=== PATIENT | male | born 1950 | race Caucasian/White ===

== ENCOUNTER 2018-08-07 00:10 | Emergency (ER) | payer MEDICARE, OTHER, SELFPAY ==
[2018-08-07 00:12] VITALS: BP 185/90; PULSE 94; RESP 16; TEMP 36.8; O2SAT 97; BMI 35.4
[2018-08-07 00:15] VITALS: O2SAT 97
--- NOTE | 2018-08-07 00:45 | RAD_ITS ---
STUDY: X-RAY CHEST REASON FOR EXAM: Male, 68 years old. Head cold, cough, congestion. TECHNIQUE: PA and lateral chest. COMPARISON: March 02, 2016. FINDINGS: The lungs are clear and expanded. There is no demonstrated pleural abnormality. Normal size heart. Normal mediastinum and jatin. Normal visualized pulmonary arteries. Normal visualized aortic arch and descending thoracic aorta. Degenerative changes of the thoracic spine. Normal visualized ribs, clavicles, and shoulders. There is no demonstrated abnormality of the visualized soft tissue structures of the upper abdomen. RAD/Chest PA and Lateral IMPRESSION: No acute cardiopulmonary disease. Electronically Signed: Joey aFtima MD at 1:34 EST , Service support ,
[2018-08-07 00:53] VITALS: PULSE 90; RESP 16
[2018-08-07] MEDS: Albuterol 2.5 MG/3 ML VIAL.NEB. INHALATION (00:53)
--- NOTE | 2018-08-07 02:13 | ED.VIS.GEN ---
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 congestion. sore throat. no earaches or fevers. occ sob. Narrative: No history of lung or heart disease. He is a diabetic. - Past Medical History (1) Bipolar disorder Status: Chronic (2) GERD (gastroesophageal reflux disease) Status: Chronic (3) History of prostate cancer Status: Chronic Comment: Status post surgery and artificial bladder sphincter (4) Hyperlipidemia Status: Chronic (5) Hypertension Status: Chronic (6) Type II diabetes mellitus Status: Chronic Past Medical History - Allergies and Home Meds Allergies/Adverse Reactions: Allergies ciprofloxacin [From Cipro] Allergy (Verified 07/18/14 22:51) Swelling ciprofloxacin HCl [From Cipro] Allergy (Verified 07/18/14 22:51) Swelling tramadol Allergy (Verified 07/18/14 22:51) Unknown lactose Adverse Reaction (Verified 08/23/14 11:34) Other DIARRHEA peanut Adverse Reaction (Verified 03/13/15 10:56) Nausea terbinafine HCl [From Lamisil] Adverse Reaction (Verified 08/23/14 11:34) Other ABNORMAL LIVER ENZYMES Primary Care Physician: Shane Schneider III, MD [Primary Care Provider] - Surgical History: herniorrhaphy, - - L foot surgery, prostate surgery for cancer. Smoking Status: Never smoker - Family History Maternal Family History: Reports: No pertinent history Paternal Family History: Reports: No pertinent history Review of Systems General: Denies: Chills, Fever Eyes: Denies: Visual changes - bilaterally, Diplopia ENT: Reports: Sore throat. Denies: Bilateral ear pain, Rhinorrhea Cardiovascular: Reports: Chest pain - when coughs only, diffuse Respiratory: Reports: Dyspnea - occasionally, mild, Cough. Denies: Sputum Gastrointestinal: Denies: Abdominal pain, Nausea, Vomiting Skin: Denies: Rash, Wounds Neurological: Denies: Headache, Weakness, Parasthesia Physical Exam Vital Signs/Narrative: Vital Signs Temp Pulse Resp BP Pulse Ox 08/07/18 00:53 90 16 08/07/18 00:12 98.2 F 94 16 185/90 H 97 Inital Vital Signs reviewed: Yes General: Well nourished, Well developed Head: Normocephalic, Atraumatic Eyes: Perrl, EOMI ENT: Moist mucous membranes, No rhinorrhea, TM's clear, - - POP erythemetous, no tonsillar edema/asymmetry or exudates.. Negative for: Sinus tenderness Neck: Supple, No lymphadenopathy - but submandib ttp Cardiovascular: Regular rate, Regular rhythm, No murmurs Respiratory: No distress, Chest nontender, Wheezing - mild end-expiratory bilat Abdomen: Soft, Nontender, Nondistended, Normal bowel sounds Back: Nontender, Normal Inspection Extremities: Nontender, No edema Skin: Normal color, No rash Neurological: Alert, Oriented x3, Cranial nerves II-XII grossly intact, Normal Strength, Normal Sensation Psychological: Normal affect Diagnostic/Tx/Re-eval Impressions Chest X-Ray 08/07/18 00:45 IMPRESSION: No acute cardiopulmonary disease. Electronically Signed: Joey Fatima MD at 1:34 EST , Service support , 08/07/18 00:45 CXR [Chest PA and Lateral] [RAD] Stat 08/07/18 01:00 Mucosa - Throat Group A Streptococcus Rapid Screen - Final Streptococcus Group A POS - Medical Decision Making X-ray is negative and strep test is positive. Will treat with amoxicillin, outpatient follow-up advised if not improving. He is improved after an albuterol nebulizer, his wheezing was minimal and he has no reactive airway disease history, I do not think he needs steroids especially because of his diabetes, and this has been minimal symptomatology for him, encouraged to return if it worsens significantly. ED Disposition - Plan for ED Patient: Disposition: Home or Assisted Living Chief Complaint: Cough Diagnosis: Strep pharyngitis Instructions: Strep Throat Prescriptions: Amoxicillin 875 mg PO BID #20 tab Referrals: Shane Schneider III, MD [Primary Care Provider] - 1 Week if not improving
--- NOTE | 2018-08-07 02:17 | ED.DCSUM_ITS ---
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 congestion. sore throat. no earaches or fevers. occ sob. Narrative: No history of lung or heart disease. He is a diabetic. - Past Medical History (1) Bipolar disorder Status: Chronic (2) GERD (gastroesophageal reflux disease) Status: Chronic (3) History of prostate cancer Status: Chronic Comment: Status post surgery and artificial bladder sphincter (4) Hyperlipidemia Status: Chronic (5) Hypertension Status: Chronic (6) Type II diabetes mellitus Status: Chronic Past Medical History - Allergies and Home Meds Allergies/Adverse Reactions: Allergies ciprofloxacin [From Cipro] Allergy (Verified 07/18/14 22:51) Swelling ciprofloxacin HCl [From Cipro] Allergy (Verified 07/18/14 22:51) Swelling tramadol Allergy (Verified 07/18/14 22:51) Unknown lactose Adverse Reaction (Verified 08/23/14 11:34) Other DIARRHEA peanut Adverse Reaction (Verified 03/13/15 10:56) Nausea terbinafine HCl [From Lamisil] Adverse Reaction (Verified 08/23/14 11:34) Other ABNORMAL LIVER ENZYMES Primary Care Physician: Shane Schneider III, MD [Primary Care Provider] - Surgical History: herniorrhaphy, - - L foot surgery, prostate surgery for cancer. Smoking Status: Never smoker - Family History Maternal Family History: Reports: No pertinent history Paternal Family History: Reports: No pertinent history Review of Systems General: Denies: Chills, Fever Eyes: Denies: Visual changes - bilaterally, Diplopia ENT: Reports: Sore throat. Denies: Bilateral ear pain, Rhinorrhea Cardiovascular: Reports: Chest pain - when coughs only, diffuse Respiratory: Reports: Dyspnea - occasionally, mild, Cough. Denies: Sputum Gastrointestinal: Denies: Abdominal pain, Nausea, Vomiting Skin: Denies: Rash, Wounds Neurological: Denies: Headache, Weakness, Parasthesia Physical Exam Vital Signs/Narrative: Vital Signs Temp Pulse Resp BP Pulse Ox 08/07/18 00:53 90 16 08/07/18 00:12 98.2 F 94 16 185/90 H 97 Inital Vital Signs reviewed: Yes General: Well nourished, Well developed Head: Normocephalic, Atraumatic Eyes: Perrl, EOMI ENT: Moist mucous membranes, No rhinorrhea, TM's clear, - - POP erythemetous, no tonsillar edema/asymmetry or exudates.. Negative for: Sinus tenderness Neck: Supple, No lymphadenopathy - but submandib ttp Cardiovascular: Regular rate, Regular rhythm, No murmurs Respiratory: No distress, Chest nontender, Wheezing - mild end-expiratory bilat Abdomen: Soft, Nontender, Nondistended, Normal bowel sounds Back: Nontender, Normal Inspection Extremities: Nontender, No edema Skin: Normal color, No rash Neurological: Alert, Oriented x3, Cranial nerves II-XII grossly intact, Normal Strength, Normal Sensation Psychological: Normal affect Diagnostic/Tx/Re-eval Impressions Chest X-Ray 08/07/18 00:45 IMPRESSION: No acute cardiopulmonary disease. Electronically Signed: Joey Fatima MD at 1:34 EST , Service support , 08/07/18 00:45 CXR [Chest PA and Lateral] [RAD] Stat 08/07/18 01:00 Mucosa - Throat Group A Streptococcus Rapid Screen - Final Streptococcus Group A POS - Medical Decision Making X-ray is negative and strep test is positive. Will treat with amoxicillin, outpatient follow-up advised if not improving. He is improved after an albuterol nebulizer, his wheezing was minimal and he has no reactive airway disease history, I do not think he needs steroids especially because of his diabetes, and this has been minimal symptomatology for him, encouraged to return if it worsens significantly. ED Disposition - Plan for ED Patient: Disposition: Home or Assisted Living Chief Complaint: Cough Diagnosis: Strep pharyngitis Instructions: Strep Throat Prescriptions: Amoxicillin 875 mg PO BID #20 tab Referrals: Shane Schneider III, MD [Primary Care Provider] - 1 Week if not improving
[2018-08-07 02:19] VITALS: BP 154/80; PULSE 87; PULSE 88; O2SAT 93
[2018-08-07] MEDS: AMOXICILLIN 500 MG CAPSULE PO (02:19)
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
== END 2018-08-07 02:22 | disposition home or self-care (01) ==
PROVIDERS: Emergency Provider Emergency Medicine; Family Provider Family Medicine; PCP Family Medicine
DX: J02.0 Streptococcal pharyngitis (principal); F31.9 Bipolar disorder, unspecified; K21.9 Gastro-esophageal reflux disease without esophagitis; E78.5 Hyperlipidemia, unspecified; I10 Essential (primary) hypertension; E11.9 Type 2 diabetes mellitus without complications; Z85.46 Personal history of malignant neoplasm of prostate; Z79.82 Long term (current) use of aspirin; Z79.84 Long term (current) use of oral hypoglycemic drugs; Z79.899 Other long term (current) drug therapy
CPT/HCPCS: 36415; 71046; 87880; 94640; 99284

== ENCOUNTER 2018-10-10 20:17 | Observation (INO) | payer MEDICARE, MEDICAID, SELFPAY ==
[2018-10-10 20:22] VITALS: BP 163/95; PULSE 101; RESP 19; TEMP 37.4; O2SAT 93; BMI 34.4
--- NOTE | 2018-10-10 20:50 | EKG12_ITS ---
Test Reason : CP Blood Pressure : / mmHG Vent. Rate : 098 BPM Atrial Rate : 098 BPM P-R Int : 154 ms QRS Dur : 108 ms QT Int : 364 ms P-R-T Axes : 039 016 020 degrees QTc Int : 464 ms Normal sinus rhythm Normal ECG Confirmed by MARIA A JIMENEZ MD ([id number]), assistant editor JOHN MULLINS ([id number]) on 10/16/2018 9:56:10 AM Referred By: ANA PAULA Confirmed By:MARIA A JIMENEZ MD
--- NOTE | 2018-10-10 20:50 | RAD_ITS ---
STUDY: X-RAY CHEST REASON FOR EXAM: Male, 68 years old. Chest pain. TECHNIQUE: Single AP portable view of the chest. COMPARISON: Chest, August 07, 2018. FINDINGS: The lungs are clear and expanded. There is no demonstrated pleural abnormality. Normal size heart. Normal mediastinum and jatin. Normal visualized pulmonary arteries. There is atherosclerotic calcification of the aortic arch with tortuosity. There are diffuse degenerative changes of the visualized thoracic spine. There is degenerative osteoarthritis of the bilateral shoulders. There is no demonstrated abnormality of the visualized soft tissue structures of the upper abdomen. RAD/Chest 1 View (Portable) IMPRESSION: No acute cardiopulmonary disease or interval change. Electronically Signed: Santana Henry DO at 21:21 EST Tel [phone], Service support ,
--- NOTE | 2018-10-10 20:53 | ED.DCSUM_ITS ---
- ER Visit Summary Date of Service: 10/10/18 Chief Complaint: Chest pain History of Present Illness: The patient is a 68 M who presents for chest pain that occurred just prior to presentation. Patient was walking and began having substernal/left-sided chest pain with radiation into the left shoulder. Patient called EMS, and was given aspirin. Patient's pain resolved shortly after that before he was given any nitro. Patient denies shortness of breath, cough, fever, radiation into the right side, abdominal pain, new back pain, nausea or vomiting, or any other complaints. No history of prior coronary artery disease. Patient does have retention, diabetes, hypercholesterolemia, obesity and prostate cancer. Patient takes baby aspirin daily. He does not smoke. Physical Examination: Vital signs: afebrile, hemodynamically stable, no hypoxia on room air General: well nourished, well developed, in no distress Skin: warm, dry, no rash, no pallor HEENT: normocephalic and atraumatic; PERRL, EOMI, moist mucous membranes Cardiovascular: regular rate and rhythm without murmurs, no peripheral edema, 2+ pulses all distal extremities, reproduction of the chest pain with palpation to the left chest Respiratory: No increased work of breathing, lungs are clear to auscultation bilaterally, no rales, rhonchi or wheezing Abdominal: Abdomen is soft, nontender with normoactive bowel sounds, no guarding or rebound, no masses MSK: Moves all extremities, no deformities, normal strength Neuro: Awake and alert, oriented ?4. No facial droop, sensation and motor function intact and symmetric Test Results: Abnormal Lab Results 10/10/18 10/10/18 21:05 21:05 WBC 8.3 RBC 4.84 Hgb 14.4 Hct 42.7 MCV 88.2 MCH 29.8 MCHC 33.7 RDW 12.5 RDW Differential 40.3 Plt Count 222 MPV 9.6 Immature Gran % (Auto) 0.100 Neut % (Auto) 52.1 Lymph % (Auto) 35.3 [place] % (Auto) 9.6 Eos % (Auto) 2.8 Baso % (Auto) 0.1 Absolute Neuts (auto) 4.3 Absolute Lymphs (auto) 2.94 Total Counted Not Reportable Sodium 138 Potassium 3.8 Chloride 105 Carbon Dioxide 25.0 Anion Gap 8 BUN 19 H Creatinine 0.98 Estim Creat Clear Calc 69.32 Est GFR (MDRD) Af Amer 99 Est GFR (MDRD) Non-Af 82 BUN/Creatinine Ratio 19.5 Glucose 157 H Calcium 8.8 Troponin I < 0.015 Clinical Impression(s) from Imaging Studies Chest X-Ray 10/10/18 20:50 IMPRESSION: No acute cardiopulmonary disease or interval change. Electronically Signed: Santana Henry DO at 21:21 EST Tel [phone], Service support , Medications Given Sodium Chloride () 1,000 mls @ 150 mls/hr IV .Q6H40M ABRAM Last Admin: 10/10/18 21:28 Dose: 150 mls/hr Discontinued Medications Acetaminophen (Tylenol) 650 mg PO X1 ONE Stop: 10/10/18 20:52 Last Admin: 10/10/18 21:28 Dose: 650 mg Nitroglycerin (Nitrostat) 0.4 mg SUBLINGUAL Q5M ABRAM Stop: 10/10/18 21:11 Last Admin: 10/10/18 22:52 Dose: Not Given Admin: 10/10/18 22:52 Dose: Not Given Admin: 10/10/18 22:52 Dose: Not Given Emergency Department Course and Treatment: Patient is currently pain-free. He received aspirin prehospital. EKG showed a sinus rhythm with no ST or T wave changes. Patient was complaining of chronic bilateral hip pain and was given Tylenol for this. Patient's initial troponin was negative. Labs otherwise unremarkable. Chest x-ray showed no signs of pneumonia. Patient remained pain- free. Given his age, concerning story, and multiple risk factors, patient has a HEART score of 5 and thus is moderate risk for 30-day MACE. Patient was discussed with the hospitalist for admission as observation status for further chest pain workup. Treatment Plan: [] Disposition: [] Impression: chest pain, concern for ACS This note was generated with [employer] dictation software. It may contain incorrect words, spelling, and punctuation that were not noted in review of the chart prior to signing ED Disposition - Plan for ED Patient: Referrals: Shane Schneider III, MD [Primary Care Provider] -
[2018-10-10 21:11] VITALS: O2SAT 95
[2018-10-10 21:19] LABS: Absolute Lymphocyte Count 2.94 X10^3/ul (0.83-4.51); Absolute Neutrophil Count 4.3 X10^3/uL (2.0-7.7); Basophil# 0.01 X10^3/uL; Basophil% 0.1 % (0-1); Eosinophil# 0.23 X10^3/uL; Eosinophils% 2.8 % (0-5); Hematocrit 42.7 % (40-54); Hemoglobin 14.4 g/dl (13.0-16.5); Lymphocyte # 2.94 X10^3/ul (4.0); Lymphocyte % 35.3 % (19-41); Mean Corp Hgb Conc 33.7 g/gl (32-36); Mean Corpuscular Hgb 29.8 pg (27.0-32.0); Mean Corpuscular Volume 88.2 fL (80-94); Mean Platelet Vol. 9.6 fl (6.2-12.0); Monocyte% 9.6 % (0-10); Neutrophil # 4.33 X10^3/uL (2.7-7.7); Neutrophil % 52.1 % (47-70); Platelet Count 222 K/mm3 (150-450); RBC Distribution Width CV 12.5 % (11.6-14.6); RBC Distribution Width SD 40.3 fl (35.1-43.9); Red Blood Count 4.84 M/mm3 (4.6-6.2); White Blood Count 8.3 K/mm3 (4.4-11.0)
[2018-10-10 21:23] LABS: POSITIVE COUNT NO; POSITIVE DIFFERENTIAL NO; POSITIVE MORPHOLOGY NO
[2018-10-10] MEDS: 0.9% Normal Saline 1,000 ML 150 ML IV (21:28)
[2018-10-10] MEDS: Acetaminophen 325 MG Tablet 650 MG PO (21:28)
[2018-10-10 21:30] VITALS: BP 123/98; PULSE 85; RESP 19; O2SAT 94
[2018-10-10 21:36] LABS: Anion Gap 8 (5-15); BUN 19 mg/dL (7-18); BUN/Creat Ratio 19.5 RATIO (10-20); Calcium,Total 8.8 mg/dL (8.5-10.1); Chloride 105 mmol/L (98-107); Creatinine, Serum 0.98 mg/dL (0.70-1.30); EST Glomerular Filtration Rate 82 mL/min (>60); Est Glom Filt Rate - Afr Amer 99 mL/min (>60); Estimated Creatinine Clearance 69.32 ml/min; Glucose 157 mg/dL (74-106); Potassium 3.8 mmol/L (3.5-5.1); Sodium Level 138 mmol/L (136-145)
[2018-10-10 23:15] VITALS: BP 120/81; PULSE 77; RESP 15; O2SAT 92
--- NOTE | 2018-10-10 23:15 | PCM.HP.STD ---
Problem List (1) Chest pain Status: Acute History of Present Illness Date of Admission: 10/10/18 Chief Complaint: chest Pain The patient is a 68 year old M with a significant history of GERD; hypertension; prostate cancer s/p prostatectomy; diabetes mellitus; hyperlipidemia who presented because of chest pain. His chest pain is located predominantly at his left chest but his pain span across his entire chest and it radiated to his left armpit. He reports diaphoresis but thinks that his diaphoresis is associated with exerting himself. He denies any nausea or vomiting. His chest pain began a few hours after his admission. He rated his chest pain as 3-4 on a scale of 1-10. He reported that his chest pain improved with aspirin; and that his chest pain followed progressively improving course. He denied any aggravating factor. He reported that in the past he had substernal chest pain but that was related to GERD. He reported that his father from complications of heart surgery when he was probably his 60s. Past Medical History Past Medical History (Chronic Problems): Chronic Problems Hypertension (Chronic) Type II diabetes mellitus (Chronic) History of prostate cancer (Chronic) Status post surgery and artificial bladder sphincter Hyperlipidemia (Chronic) GERD (gastroesophageal reflux disease) (Chronic) Bipolar disorder (Chronic) Allergies ciprofloxacin [From Cipro] Allergy (Verified 10/10/18 20:17) Swelling ciprofloxacin HCl [From Cipro] Allergy (Verified 10/10/18 20:17) Swelling tramadol Allergy (Verified 10/10/18 20:17) Unknown lactose Adverse Reaction (Verified 10/10/18 20:17) Other DIARRHEA peanut Adverse Reaction (Verified 10/10/18 20:17) Nausea terbinafine HCl [From Lamisil] Adverse Reaction (Verified 10/10/18 20:17) Other ABNORMAL LIVER ENZYMES Home Medications: Ambulatory Orders Medication Instructions Recorded Lorazepam [Ativan] 0.5 mg PO TID 08/23/14 Metformin HCl [Glucophage] 500 mg PO DAILY 08/23/14 Methenamine Hippurate 1 gm PO BID 08/23/14 Omeprazole [Prilosec] 40 mg PO DAILY 08/23/14 Oxcarbazepine [Trileptal] 600 mg PO BID 08/23/14 Aspirin [Aspirin, Baby] 81 mg PO DAILY@0800 03/02/16 Cetirizine HCl [Zyrtec] 10 mg PO DAILY PRN 03/02/16 Fluoxetine [Prozac] 20 mg PO DAILY 03/02/16 Losartan Potassium [Cozaar] 25 mg PO QHS 03/02/16 Simvastatin [Zocor] 20 mg PO QHS 03/02/16 Solifenacin Succinate [Vesicare] 10 mg PO DAILY 03/02/16 Olanzapine [Zyprexa] 5 mg PO BID 08/07/18 Amlodipine [Norvasc] 5 mg PO DAILY 10/11/18 Benztropine [Cogentin] 0.5 mg PO QHS 10/11/18 Benztropine [Cogentin] 1 mg PO DAILY 10/11/18 Cholecalciferol (Vitamin D3) 2,000 unit PO DAILY 10/11/18 [Vitamin D3] Loratadine 10 mg PO DAILY 10/11/18 Macrobid 100 mg PO BID 10/11/18 Senna/Docusate Sodium [Senokot-S] 2 tablet PO QHS 10/11/18 traZODone [Desyrel] 50 mg PO QHS 10/11/18 Surgical History: herniorrhaphy, - - L foot surgery, prostate surgery for cancer. Lives: Long-Term - [facility] Smoking Status: Never smoker Alcohol: None - *Family History Maternal History Items: Dementia Paternal History Items: Heart Disease - He reported his father from complication of heart surgeries; probably in his 60s. Review of Systems Constitutional: Denies: Chills, Fever, Weight Change HEENT: Denies: Head Aches, Sinus Congestion, Sinus Drainage Cardiovascular: Denies: Chest Pain, Palpitations Respiratory: Denies: Cough, Shortness of breath at rest, Sputum production Gastrointestinal: Denies: Abdominal Pain, Nausea, Vomiting Genitourinary: Denies: Dysuria Musculoskeletal: Denies: Joint Pain, Joint Tenderness Skin: Denies: Rash, Wounds Neurological: Denies: Numbness, Tingling, Focal weakness Psychiatric: Denies: Anxiety, Depression, Homicidal Ideations, Suicidal Ideations Hematologic/ Lymphatic: Denies: Easy Bruising, Easy Bleeding VTE Information - Inpt Only VTE Present on Admission: No VTE Mechan Device Prophylaxis: None VTE Pharm Prophylaxis ordered?: Yes - Physical Exam General: Alert, Oriented x3, Cooperative HEENT: Atraumatic, PERRLA, EOMI, Normocephalic Neck: Supple, No JVD, Negative Carotid Bruits Lungs: Clear to auscultation, Normal air movement Cardiovascular: Regular rate, No murmurs Abdomen: Bowel Sounds Present, Soft, Non Tender Extremities: No edema, Capillary Refill Less than 3 Seconds Skin: No rashes, No breakdown Musculoskeletal: No Tenderness to Palpation of Joints or Extremities Neurological: Neuro grossly intact Psych/Mental Status: Normal Affect, Appropriate Vital Signs Temp Pulse Resp BP Pulse Ox 99.4 F H 85 19 H 123/98 H 94 10/10/18 20:22 10/10/18 21:30 10/10/18 21:30 10/10/18 21:30 10/10/18 21:30 Oxygen Flow Rate (L/min) 2 Oxygen Delivery Method Nasal Cannula Weight: 99.79 kg Body Mass Index (BMI) 34.4 Finger Stick Blood Glucose 123 Laboratory Tests Past 24 Hrs 10/10/18 10/10/18 21:05 21:05 WBC 8.3 RBC 4.84 Hgb 14.4 Hct 42.7 MCV 88.2 MCH 29.8 MCHC 33.7 RDW 12.5 RDW Differential 40.3 Plt Count 222 MPV 9.6 Immature Gran % (Auto) 0.100 Neut % (Auto) 52.1 Lymph % (Auto) 35.3 [place] % (Auto) 9.6 Eos % (Auto) 2.8 Baso % (Auto) 0.1 Absolute Neuts (auto) 4.3 Absolute Lymphs (auto) 2.94 Total Counted Not Reportable Sodium 138 Potassium 3.8 Chloride 105 Carbon Dioxide 25.0 Anion Gap 8 BUN 19 H Creatinine 0.98 Estim Creat Clear Calc 69.32 Est GFR (MDRD) Af Amer 99 Est GFR (MDRD) Non-Af 82 BUN/Creatinine Ratio 19.5 Glucose 157 H Calcium 8.8 Troponin I < 0.015 Assessment/Plan All Active Problems Chest pain (Acute) The patient is a 68 year old M with a significant history of GERD; hypertension; prostate cancer s/p prostatectomy; diabetes mellitus; hyperlipidemia who presented because of chest pain. Chest pain Admit to a monitored bed on PCU CXR independently reviewed confirms no acute cardiopulmonary process but with atherosclerotic calcification of the aortic arch EKG independently reviewed confirms sinus rhythm Heart score is 4 points; moderate score. (more than 3 risk factors; and age more than 65.) ASA 81 mg p.o. daily Morphine as needed for pain Home losartan continued We will check lipid panel. We will escalate his home statin regimen to high intensity statin. Serial cardiac enzymes Stat EKG as needed for chest pain Treadmill Stress test in the AM if the cardiac enzymes are negative Diabetes mellitus On admission his blood glucose was within goal. Since it is too early in his admission will hold home metformin and put him on correction scale insulin regimen. Hypertension His blood pressure is fairly stable. Amlodipine, and losartan continued. Trend blood pressures and adjust blood pressure medication. Acute Cystitis Stable On home macrobid with 3 doses left. Will continue Methenamine for UTI prophylaxis continued. Overactive Bladder Cogentin continued On home VESIcare.Tolterodine while inpatient Depression/anxiety: Trazodone and Ativan continued. DVT prophylaxis Subcutaneous heparin . Miscellaneous: On home Trileptal. Patient denies history of seizures or migraine. Reports headache. Trileptal continued Code Visit OBSV E&M: 84959 Initial observation care L3
[2018-10-11] VITALS (7 sets, daily range): BP systolic 138–148; BP diastolic 68–84; PULSE 69–93; RESP 16–18; TEMP 36.4–36.8; O2SAT 92–96; BMI 34.5; BMI 34.9
--- NOTE | 2018-10-11 00:28 | EKG12_ITS ---
Test Reason : CP ADMISSION EKG Blood Pressure : / mmHG Vent. Rate : 078 BPM Atrial Rate : 078 BPM P-R Int : 160 ms QRS Dur : 112 ms QT Int : 408 ms P-R-T Axes : 050 018 004 degrees QTc Int : 465 ms Normal sinus rhythm Normal ECG When compared with ECG of 10-OCT-2018 20:21, MANUAL COMPARISON REQUIRED, DATA IS UNCONFIRMED Confirmed by BARBARA ARRIAGA, MARIA A ([id number]), photography editor JOHN MULLINS ([id number]) on 10/16/2018 11:24:29 AM Referred By: KARISSA Confirmed By:MARIA A JIMENEZ MD
[2018-10-11] MEDS: Atorvastatin Calcium 80 MG Tablet PO (01:17)
[2018-10-11 01:21] LABS: Bedside Glucose 153 mg/dL (70-110)
[2018-10-11 03:38] LABS: Absolute Lymphocyte Count 3.12 X10^3/ul (0.83-4.51); Absolute Neutrophil Count 3.2 X10^3/uL (2.0-7.7); Basophil# 0.01 X10^3/uL; Basophil% 0.1 % (0-1); Eosinophil# 0.25 X10^3/uL; Eosinophils% 3.5 % (0-5); Hematocrit 42.8 % (40-54); Hemoglobin 14.2 g/dl (13.0-16.5); Lymphocyte # 3.12 X10^3/ul (4.0); Lymphocyte % 43.8 % (19-41); Mean Corp Hgb Conc 33.2 g/gl (32-36); Mean Corpuscular Hgb 29.7 pg (27.0-32.0); Mean Corpuscular Volume 89.5 fL (80-94); Mean Platelet Vol. 9.7 fl (6.2-12.0); Monocyte# 0.58 X10^3/uL; Monocyte% 8.1 % (0-10); Neutrophil # 3.16 X10^3/uL (2.7-7.7); Neutrophil % 44.4 % (47-70); Platelet Count 198 K/mm3 (150-450); RBC Distribution Width CV 12.6 % (11.6-14.6); RBC Distribution Width SD 40.8 fl (35.1-43.9); Red Blood Count 4.78 M/mm3 (4.6-6.2); White Blood Count 7.1 K/mm3 (4.4-11.0)
[2018-10-11 03:40] LABS: POSITIVE COUNT NO; POSITIVE DIFFERENTIAL NO; POSITIVE MORPHOLOGY NO
[2018-10-11 03:42] LABS: Prothrombin Time (Protime)PT. 12.9 SECONDS (11.7-14.9)
[2018-10-11 03:43] LABS: Partial Thromboplast Time 30.7 Seconds (24.1-36.2)
[2018-10-11 04:05] LABS: Anion Gap 11 (5-15); BUN 18 mg/dL (7-18); BUN/Creat Ratio 22.8 RATIO (10-20); Calcium,Total 8.5 mg/dL (8.5-10.1); Chloride 105 mmol/L (98-107); Cholesterol 154 mg/dL (200); Creatinine, Serum 0.79 mg/dL (0.70-1.30); EST Glomerular Filtration Rate 104 mL/min (>60); Est Glom Filt Rate - Afr Amer 126 mL/min (>60); Estimated Creatinine Clearance 67.94 ml/min; Glucose 130 mg/dL (74-106); High Density Lipoprotein 44 mg/dL; Potassium 4.4 mmol/L (3.5-5.1); Sodium Level 140 mmol/L (136-145); Triglycerides 217 mg/dL; Very Low Density Lipoprotein 43 mg/dL (5-40)
[2018-10-11] MEDS: Aspirin E.C. 81 MG Tablet PO (06:12)
[2018-10-11] MEDS: 0.9% NaCl Peripheral Flush Adult/Peds IV (06:12)
[2018-10-11] MEDS: LORazepam 0.5 MG Tablet PO (06:12)
[2018-10-11 06:22] LABS: Bedside Glucose 139 mg/dL (70-110)
--- NOTE | 2018-10-11 09:18 | STRESSREP_ITS ---
Stress Test Report Exercise myocardial perfusion stress test. 68-year-old male with a history of chest pain. Stress protocol: Resting EKG demonstrates normal sinus rhythm with a rate of 74 bpm normal intervals are noted resting blood pressure 132/88 mmHg. The patient exercised according to regular Jin protocol for a total duration of 4 minutes. Patient completed 1 minute into stage II of the Jin protocol. The maximum heart rate attained was 151 bpm which was 98% of maximum predicted heart rate the maximum workload was 5.8 metabolic equivalents. The resting blood pressure 132/88 with a peak blood pressure 180/82. At rest there were no ST or T wave changes noted suggest ischemia. At peak exercise upsloping ST changes only were noted with n ormally the criteria for ischemia. No clinical angina was noted. Myocardial perfusion protocol. 14.4 mCi of technetium 99m sestamibi was injected at rest. Patient exercised according to regular Jin protocol for 4 minutes at peak exercise 44.5 mCi of technetium 99m sestamibi was injected stress images were obtained stress and rest images were reconstructed and compared in the short axis vertical long horizontal long axis. Gated images were also obtained Perfusion SPECT analysis: Review of the stress images demonstrate normal uptake of tracer noted in all areas of the myocardium. The resting images similarly demonstrate normal uptake of tracer noted in all areas of the myocardium. No areas of reversibility are noted suggest ischemia no previous infarct is noted. Gated SPECT analysis: The gated ejection fraction is noted to be 64%. Conclusion: Normal exercise myocardial perfusion stress test at a low to moderate workload. Preserved ejection fraction.
[2018-10-11] MEDS: Pantoprazole Sodium 40 MG Tablet PO (09:26)
[2018-10-11] MEDS: Nitrofurantoin Macrocrystals 100 MG Capsule PO (09:26)
[2018-10-11] MEDS: FLUoxetine 20 MG Capsule PO (09:26)
[2018-10-11] MEDS: Loratadine 10 MG Tablet PO (09:26)
[2018-10-11] MEDS: Tolterodine Tartrate 4 MG CAP.SA PO (09:26)
[2018-10-11] MEDS: OLANZapine 5 MG/TAB TAB.RAPDIS PO (09:26)
[2018-10-11] MEDS: OXcarbazepine 300 MG Tablet 600 MG PO (09:26)
[2018-10-11] MEDS: amLODIPine 5 MG Tablet PO (09:26)
[2018-10-11] MEDS: Benztropine 2 MG Tablet 1 MG PO (09:27)
--- NOTE | 2018-10-11 10:03 | DCINST_ITS ---
You will use the following diet at home:: Calorie/Carbohydrate Controlled (specify 1200, 1400, etc) Discharge Activity: Return to Normal Activity Call your doctor if you observe: Shortness of breath, Dizziness, Fainting spells, Chest pain Additional Instructions: Your blood sugar was elevated during admission. Recommend discussion with primary care physician about increasing metformin based on reported recent HA1C by PCP. Allergies/Adverse Reactions: Allergies ciprofloxacin [From Cipro] Allergy (Verified 10/11/18 00:47) Swelling ciprofloxacin HCl [From Cipro] Allergy (Verified 10/11/18 00:47) Swelling tramadol Allergy (Verified 10/11/18 00:47) Unknown lactose Adverse Reaction (Verified 10/11/18 00:47) Other DIARRHEA peanut Adverse Reaction (Verified 10/11/18 00:47) Nausea terbinafine HCl [From Lamisil] Adverse Reaction (Verified 10/11/18 00:47) Other ABNORMAL LIVER ENZYMES Medications to take at Discharge Lorazepam [Ativan] 0.5 mg PO TID 08/23/14 Metformin HCl [Glucophage] 500 mg PO DAILY 08/23/14 Methenamine Hippurate 1 gm PO BID 08/23/14 Omeprazole [Prilosec] 40 mg PO DAILY 08/23/14 Oxcarbazepine [Trileptal] 600 mg PO BID 08/23/14 Aspirin [Aspirin, Baby] 81 mg PO DAILY@0800 03/02/16 Cetirizine HCl [Zyrtec] 10 mg PO DAILY PRN 03/02/16 Fluoxetine [Prozac] 20 mg PO DAILY 03/02/16 Losartan Potassium [Cozaar] 25 mg PO QHS 03/02/16 Simvastatin [Zocor] 20 mg PO QHS 03/02/16 Solifenacin Succinate [Vesicare] 10 mg PO DAILY 03/02/16 Olanzapine [Zyprexa] 5 mg PO BID 08/07/18 Amlodipine [Norvasc] 5 mg PO DAILY 10/11/18 Benztropine [Cogentin] 0.5 mg PO QHS 10/11/18 Benztropine [Cogentin] 1 mg PO DAILY 10/11/18 Cholecalciferol (Vitamin D3) [Vitamin D3] 2,000 unit PO DAILY 10/11/18 Loratadine 10 mg PO DAILY 10/11/18 Macrobid 100 mg PO BID 10/11/18 Senna/Docusate Sodium [Senokot-S] 2 tablet PO QHS 10/11/18 traZODone [Desyrel] 50 mg PO QHS 10/11/18 Primary Care Physician: Shane Schneider III, MD [Primary Care Provider] - Please follow up with your Primary Care Physician in: 1 Week Test Results: Test results from this visit will be discussed in further detail at your follow- up appointment, if applicable. Proposed Discharge Date: 10/11/18
--- NOTE | 2018-10-11 10:12 | DS.PCM_ITS ---
<Marilu Draper - Last Filed: 10/11/18 10:12> Discharge Date and Diagnosis Date of Admission: 10/10/18 Date of Discharge: 10/11/18 - Primary Discharge Diagnosis 1. Muscular skeletal chest pain, ACS ruled out 2. Type 2 diabetes mellitus 3. Hypertension 4. Hyperlipidemia 5. GERD 6. Bipolar disorder 7. History of prostate cancer - Secondary Discharge Diagnosis Chronic Problems Hypertension (Chronic) Type II diabetes mellitus (Chronic) History of prostate cancer (Chronic) Status post surgery and artificial bladder sphincter Hyperlipidemia (Chronic) GERD (gastroesophageal reflux disease) (Chronic) Bipolar disorder (Chronic) Hospital Course and Treatment Imaging Results: Diagnostic Data Chest X-Ray 10/10/18 20:50 IMPRESSION: No acute cardiopulmonary disease or interval change. Electronically Signed: Santana Henry DO at 21:21 EST Tel [phone], Service support , Operations: None Procedures: Stress test Summary of Care Provided: The patient is a 68 year old M admitted 10/10/18 due to chest pain. He has a past medical history of type 2 diabetes mellitus, hypertension, hyperlipidemia, GERD, bipolar disorder, history of prostate cancer status post prostatectomy. Patient was recently diagnosed with UTI and completing course of Macrobid. Troponin negative. EKG without ST-T changes. Chest x-ray unremarkable. Patient underwent nuclear stress test which was negative for ischemia. ACS ruled out. Suspect pain is musculoskeletal in nature. Patient continues to have mild pain in the left shoulder area which is reproducible. Patient's blood glucose was above goal during admission. Patient reports he recently had a hemoglobin A1c by primary care physician. Recommend increasing home metformin regimen if recent hemoglobin A1c above goal. Lipid panel demonstrated elevated triglycerides. Recommend repeat lipid panel by PCP with addition of statin if appropriate. Follow-up with primary care physician in 1 week. General: Alert, Oriented x3, Cooperative HEENT: Atraumatic, PERRLA, EOMI, Normocephalic Neck: Supple, No JVD, Negative Carotid Bruits Lungs: Clear to auscultation, Normal air movement Cardiovascular: Regular rate, regular rhythm, normal S1, normal S2 no murmurs Abdomen: Bowel Sounds Present, Soft, Non Tender Extremities: No edema, Capillary Refill Less than 3 Seconds Skin: No rashes, No breakdown Musculoskeletal: No Tenderness to Palpation of Joints or Extremities Neurological: Neuro grossly intact Psych/Mental Status: Normal Affect, Appropriate Patient seen and examined prior to discharge. Physical assessment as noted above. Patient is stable for discharge with follow up recommendations as noted above. This patient was seen by YISSEL Sommers under the supervision of Dr. Mahesh wheeler. - Physical Exam Vital Signs Temp Pulse Resp BP Pulse Ox 98.3 F 93 16 141/84 H 92 10/11/18 08:46 10/11/18 08:46 10/11/18 08:46 10/11/18 08:46 10/11/18 08:46 Oxygen Flow Rate (L/min) 2 Oxygen Delivery Method Room Air Weight: 223 lb 8.78 oz Body Mass Index (BMI) 34.9 Finger Stick Blood Glucose 123 Intake and Output for Last 24 Hours 10/09/18 10/10/18 10/11/18 23:59 23:59 23:59 Intake Total 240 / 240 Balance 240 / 240 Laboratory Tests Past 24 Hrs 10/10/18 10/10/18 10/11/18 21:05 21:05 00:55 WBC 8.3 RBC 4.84 Hgb 14.4 Hct 42.7 MCV 88.2 MCH 29.8 MCHC 33.7 RDW 12.5 RDW Differential 40.3 Plt Count 222 MPV 9.6 Immature Gran % (Auto) 0.100 Neut % (Auto) 52.1 Lymph % (Auto) 35.3 [place] % (Auto) 9.6 Eos % (Auto) 2.8 Baso % (Auto) 0.1 Absolute Neuts (auto) 4.3 Absolute Lymphs (auto) 2.94 Total Counted Not Reportable PT INR APTT Sodium 138 Potassium 3.8 Chloride 105 Carbon Dioxide 25.0 Anion Gap 8 BUN 19 H Creatinine 0.98 Estim Creat Clear Calc 69.32 Est GFR (MDRD) Af Amer 99 Est GFR (MDRD) Non-Af 82 BUN/Creatinine Ratio 19.5 Glucose 157 H Calcium 8.8 Troponin I < 0.015 < 0.015 Triglycerides Cholesterol LDL Cholesterol VLDL Cholesterol HDL Cholesterol 10/11/18 10/11/18 10/11/18 03:16 03:16 03:16 WBC RBC Hgb Hct MCV MCH MCHC RDW RDW Differential Plt Count MPV Immature Gran % (Auto) Neut % (Auto) Lymph % (Auto) [place] % (Auto) Eos % (Auto) Baso % (Auto) Absolute Neuts (auto) Absolute Lymphs (auto) Total Counted PT 12.9 INR 1.0 APTT 30.7 Sodium 140 Potassium 4.4 Chloride 105 Carbon Dioxide 24.0 Anion Gap 11 BUN 18 Creatinine 0.79 Estim Creat Clear Calc 67.94 Est GFR (MDRD) Af Amer 126 Est GFR (MDRD) Non-Af 104 BUN/Creatinine Ratio 22.8 H Glucose 130 H Calcium 8.5 Troponin I < 0.015 Triglycerides 217 H Cholesterol 154 LDL Cholesterol 67 VLDL Cholesterol 43 H HDL Cholesterol 44 10/11/18 03:16 WBC 7.1 RBC 4.78 Hgb 14.2 Hct 42.8 MCV 89.5 MCH 29.7 MCHC 33.2 RDW 12.6 RDW Differential 40.8 Plt Count 198 MPV 9.7 Immature Gran % (Auto) 0.100 Neut % (Auto) 44.4 L Lymph % (Auto) 43.8 H [place] % (Auto) 8.1 Eos % (Auto) 3.5 Baso % (Auto) 0.1 Absolute Neuts (auto) 3.2 Absolute Lymphs (auto) 3.12 Total Counted Not Reportable PT INR APTT Sodium Potassium Chloride Carbon Dioxide Anion Gap BUN Creatinine Estim Creat Clear Calc Est GFR (MDRD) Af Amer Est GFR (MDRD) Non-Af BUN/Creatinine Ratio Glucose Calcium Troponin I Triglycerides Cholesterol LDL Cholesterol VLDL Cholesterol HDL Cholesterol POC Glucose 10/11/18 10/11/18 06:09 01:15 POC Glucose 139 H 153 H Discharge Diet: 1800 Calorie Control Diet, Carb Control Diet Discharge Activity: Return to Normal Activity Call your doctor if you observe: Shortness of breath, Dizziness, Fainting spells, Chest pain Home Medications: Medications to take at Discharge Lorazepam [Ativan] 0.5 mg PO TID 08/23/14 Metformin HCl [Glucophage] 500 mg PO DAILY 08/23/14 Methenamine Hippurate 1 gm PO BID 08/23/14 Omeprazole [Prilosec] 40 mg PO DAILY 08/23/14 Oxcarbazepine [Trileptal] 600 mg PO BID 08/23/14 Aspirin [Aspirin, Baby] 81 mg PO DAILY@0800 03/02/16 Cetirizine HCl [Zyrtec] 10 mg PO DAILY PRN 03/02/16 Fluoxetine [Prozac] 20 mg PO DAILY 03/02/16 Losartan Potassium [Cozaar] 25 mg PO QHS 03/02/16 Simvastatin [Zocor] 20 mg PO QHS 03/02/16 Solifenacin Succinate [Vesicare] 10 mg PO DAILY 03/02/16 Olanzapine [Zyprexa] 5 mg PO BID 08/07/18 Amlodipine [Norvasc] 5 mg PO DAILY 10/11/18 Benztropine [Cogentin] 0.5 mg PO QHS 10/11/18 Benztropine [Cogentin] 1 mg PO DAILY 10/11/18 Cholecalciferol (Vitamin D3) [Vitamin D3] 2,000 unit PO DAILY 10/11/18 Loratadine 10 mg PO DAILY 10/11/18 Macrobid 100 mg PO BID 10/11/18 Senna/Docusate Sodium [Senokot-S] 2 tablet PO QHS 10/11/18 traZODone [Desyrel] 50 mg PO QHS 10/11/18 Primary Care Physician: Shane Schneider III, MD [Primary Care Provider] - Please follow up with your Primary Care Physician in: 1 Week Disposition: Home Minutes spent on discharge:: 35 Patient Condition:: Stable Medical Necessity - Tobacco Use Smoking Status: Never smoker Meaningful Use Info Meaningful Use Diagnoses (Choose all that apply): None applicable <Kaushik Ramirez - Last Filed: 10/11/18 12:40> Discharge Date and Diagnosis - Secondary Discharge Diagnosis Chronic Problems Hypertension (Chronic) Type II diabetes mellitus (Chronic) History of prostate cancer (Chronic) Status post surgery and artificial bladder sphincter Hyperlipidemia (Chronic) GERD (gastroesophageal reflux disease) (Chronic) Bipolar disorder (Chronic) Hospital Course and Treatment Imaging Results: 10/11/18 05:55 Nuclear Stress Test - Treadmil [NM] AM (NON MEDS) Summary of Care Provided: The patient is a 68 year old M [] - Physical Exam Vital Signs Temp Pulse Resp BP Pulse Ox 98.3 F 90 16 141/84 H 94 10/11/18 08:46 10/11/18 08:57 10/11/18 08:46 10/11/18 08:46 10/11/18 10:00 Oxygen Flow Rate (L/min) 2 Oxygen Delivery Method Room Air Weight: 222 lb 10.67 oz Body Mass Index (BMI) 34.9 Finger Stick Blood Glucose 123 Intake and Output for Last 24 Hours 10/09/18 10/10/18 10/11/18 23:59 23:59 23:59 Intake Total 240 / 240 Balance 240 / 240 Laboratory Tests Past 24 Hrs 10/10/18 10/10/18 10/11/18 21:05 21:05 00:55 WBC 8.3 RBC 4.84 Hgb 14.4 Hct 42.7 MCV 88.2 MCH 29.8 MCHC 33.7 RDW 12.5 RDW Differential 40.3 Plt Count 222 MPV 9.6 Immature Gran % (Auto) 0.100 Neut % (Auto) 52.1 Lymph % (Auto) 35.3 [place] % (Auto) 9.6 Eos % (Auto) 2.8 Baso % (Auto) 0.1 Absolute Neuts (auto) 4.3 Absolute Lymphs (auto) 2.94 Total Counted Not Reportable PT INR APTT Sodium 138 Potassium 3.8 Chloride 105 Carbon Dioxide 25.0 Anion Gap 8 BUN 19 H Creatinine 0.98 Estim Creat Clear Calc 69.32 Est GFR (MDRD) Af Amer 99 Est GFR (MDRD) Non-Af 82 BUN/Creatinine Ratio 19.5 Glucose 157 H Calcium 8.8 Troponin I < 0.015 < 0.015 Triglycerides Cholesterol LDL Cholesterol VLDL Cholesterol HDL Cholesterol 10/11/18 10/11/18 10/11/18 03:16 03:16 03:16 WBC RBC Hgb Hct MCV MCH MCHC RDW RDW Differential Plt Count MPV Immature Gran % (Auto) Neut % (Auto) Lymph % (Auto) [place] % (Auto) Eos % (Auto) Baso % (Auto) Absolute Neuts (auto) Absolute Lymphs (auto) Total Counted PT 12.9 INR 1.0 APTT 30.7 Sodium 140 Potassium 4.4 Chloride 105 Carbon Dioxide 24.0 Anion Gap 11 BUN 18 Creatinine 0.79 Estim Creat Clear Calc 67.94 Est GFR (MDRD) Af Amer 126 Est GFR (MDRD) Non-Af 104 BUN/Creatinine Ratio 22.8 H Glucose 130 H Calcium 8.5 Troponin I < 0.015 Triglycerides 217 H Cholesterol 154 LDL Cholesterol 67 VLDL Cholesterol 43 H HDL Cholesterol 44 10/11/18 03:16 WBC 7.1 RBC 4.78 Hgb 14.2 Hct 42.8 MCV 89.5 MCH 29.7 MCHC 33.2 RDW 12.6 RDW Differential 40.8 Plt Count 198 MPV 9.7 Immature Gran % (Auto) 0.100 Neut % (Auto) 44.4 L Lymph % (Auto) 43.8 H [place] % (Auto) 8.1 Eos % (Auto) 3.5 Baso % (Auto) 0.1 Absolute Neuts (auto) 3.2 Absolute Lymphs (auto) 3.12 Total Counted Not Reportable PT INR APTT Sodium Potassium Chloride Carbon Dioxide Anion Gap BUN Creatinine Estim Creat Clear Calc Est GFR (MDRD) Af Amer Est GFR (MDRD) Non-Af BUN/Creatinine Ratio Glucose Calcium Troponin I Triglycerides Cholesterol LDL Cholesterol VLDL Cholesterol HDL Cholesterol POC Glucose 10/11/18 10/11/18 06:09 01:15 POC Glucose 139 H 153 H Code Visit Addendum: Dr. Rmairez I personally examined the patient and reviewed the chart. I agree with the above. 68-year-old male who presented with chest pain mostly in his left shoulder which was reproducible on palpation. He had 3 negative troponins and was taken for stress test this morning which was also negative. He does have significant medical history for type 2 diabetes as well as HTN and HLD. He was discharged today with follow-up with his PCP. OBSV E&M: [id number] Observation care discharge
--- NOTE | 2018-10-11 10:21 | CASEMGMT ---
Addendum entered by Jazmyn Lai 10/11/18 11:14: VANDA also called patient's POA, Hi and let him know about d/c. He said he did not know about admission. SW told him he was admitted for chest pain last night. He thanked VANDA for the update. Jazmyn MEJÍA [employer] WORKER Original Note: Patient is from a longterm. VANDA spoke with patient and obtained a phone number for longterm. He will not have anyone to take him back. VANDA called and spoke with Joanna letting her know patient will be returning today. They are not able to provide transport. VANDA called [facility] transport and they can take patient home at 1130. He will need to be at the main entrance at 1130. VANDA let RN and Joanna at the longterm know this information. Plan: d/c back to the longterm. [facility] van will transport. Jazmyn MEJÍA TOOL MAINTENANCE WORKER
--- NOTE | 2018-10-11 11:12 | PHA.DC.MR ---
Pharmacy Service has performed discharge medication reconciliation for this patient. Medications assessed are medications the patient has been on previously, no new medications were issued at discharge The patient's discharge medication list was reviewed for discrepancies and discrepancies were resolved. Home Medications Lorazepam [Ativan] 0.5 mg PO TID 08/23/14 Metformin HCl [Glucophage] 500 mg PO DAILY 08/23/14 Methenamine Hippurate 1 gm PO BID 08/23/14 Omeprazole [Prilosec] 40 mg PO DAILY 08/23/14 Oxcarbazepine [Trileptal] 600 mg PO BID 08/23/14 Aspirin [Aspirin, Baby] 81 mg PO DAILY@0800 03/02/16 Cetirizine HCl [Zyrtec] 10 mg PO DAILY PRN 03/02/16 Fluoxetine [Prozac] 20 mg PO DAILY 03/02/16 Losartan Potassium [Cozaar] 25 mg PO QHS 03/02/16 Simvastatin [Zocor] 20 mg PO QHS 03/02/16 Solifenacin Succinate [Vesicare] 10 mg PO DAILY 03/02/16 Olanzapine [Zyprexa] 5 mg PO BID 08/07/18 Amlodipine [Norvasc] 5 mg PO DAILY 10/11/18 Benztropine [Cogentin] 0.5 mg PO QHS 10/11/18 Benztropine [Cogentin] 1 mg PO DAILY 10/11/18 Cholecalciferol (Vitamin D3) [Vitamin D3] 2,000 unit PO DAILY 10/11/18 Loratadine 10 mg PO DAILY 10/11/18 Macrobid 100 mg PO BID 10/11/18 Senna/Docusate Sodium [Senokot-S] 2 tablet PO QHS 10/11/18 traZODone [Desyrel] 50 mg PO QHS 10/11/18
== END 2018-10-11 11:30 | disposition home or self-care (01) ==
LOC: ED 21:20 → PCU 10-11 00:10
PROVIDERS: Admitting Provider Hospitalist; Emergency Provider Emergency Medicine; Family Provider Family Medicine; PCP Family Medicine; Visit Provider Family Medicine
DX: R07.89 Other chest pain (principal); E11.9 Type 2 diabetes mellitus without complications; E66.9 Obesity, unspecified; K21.9 Gastro-esophageal reflux disease without esophagitis; E78.5 Hyperlipidemia, unspecified; F31.9 Bipolar disorder, unspecified; N30.00 Acute cystitis without hematuria; F41.9 Anxiety disorder, unspecified; N32.81 Overactive bladder; Z68.34 Body mass index [BMI] 34.0-34.9, adult; Z71.3 Dietary counseling and surveillance; Z85.46 Personal history of malignant neoplasm of prostate; Z79.82 Long term (current) use of aspirin
CPT/HCPCS: 36415; 71045; 78452; 80048; 80061; 82962; 84484; 85025; 85610; 85730; 93005; 93017; 96360; 96361; 97802; 99218; 99285; A9500; J7030; A4216; G0378

== ENCOUNTER 2019-01-24 16:16 | Emergency (ER) | payer MEDICARE, MEDICAID, SELFPAY ==
[2018-10-11 00:34] VITALS: BMI 34.9
[2019-01-24 16:17] VITALS: BP 167/83; PULSE 90; RESP 16; TEMP 36.8; O2SAT 96; BMI 34.4
--- NOTE | 2019-01-24 16:33 | CT_ITS ---
STUDY: CT BRAIN WITHOUT CONTRAST REASON FOR EXAM: Male, 68 years old. Headache RADIATION DOSAGE (If Supplied By Facility): CTDIvol = ( 44.99 ) mGy, DLP = ( 829.85 ) mGycm TECHNIQUE: Transaxial CT imaging of the brain was performed without administration of intravenous contrast material. Individualized dose optimization techniques were used for this CT. COMPARISON: Previous study of 03/02/2016 FINDINGS: Normal soft tissue structures. Normal calvarium. There is mild cerebral atrophy with widening of the extra-axial spaces and ventricular dilatation. There are areas of decreased attenuation within the white matter tracts of the supratentorial brain, consistent with microvascular disease changes. Normal basal ganglia and thalami. Normal brainstem. Normal cerebellum. There is no intracranial hemorrhage. There are no findings of an acute ischemic infarction. Normal visualized paranasal sinuses. CT/Brain/Head without Contrast IMPRESSION: Chronic involutional changes of the brain. Electronically Signed: Phoenix Montgomery MD at 17:26 EDT , Service support ,
--- NOTE | 2019-01-24 16:37 | ED.DCSUM_ITS ---
- ER Visit Summary Date of Service: 01/24/19 Chief Complaint: Headache History of Present Illness: The patient is a 68 M presenting with headache. Patient states he has had headaches almost daily for the past 2 months. Today the headache did not go away with naproxen. It was gradual in onset. He states the pain is 3 out of 10. It is mostly on the right side of his head. He denies vision changes. Denies numbness or weakness. Denies nausea or vomiting. Denies fever. Denies recent trauma. Denies other complaints. Physical Examination: Vitals are stable. Patient is afebrile. Alert no acute distress. HEENT exam: No temporal artery tenderness. Mild right maxillary sinus tenderness. Neck is supple. No meningismus Lungs are clear and equal bilaterally. Heart is regular rate and rhythm. Abdomen is soft nontender nondistended. Extremities are unremarkable. Skin is warm and dry. No focal neurologic deficit. Remainder of exam is unremarkable. Emergency Department Course and Treatment: Patient was given Reglan, Benadryl IV. CT head shows chronic changes. On reevaluation, patient is feeling somewhat improved. Due to the duration of his symptoms and sinus tenderness he is started on Augmentin. Advised to follow-up with his primary care physician. Advised return to the ED if worsening complaints. Disposition: Discharge home Impression: Headache, sinusitis This note was generated with [employer] dictation software. It may contain incorrect words, spelling, and punctuation that were not noted in review of the chart prior to signing ED Disposition - Plan for ED Patient: Instructions: ED Cephalgia Unspecified, ED Headache Sinus Prescriptions: Amox/Clavulanate Tablet [Augmentin Tablet] 875 mg PO Q12H #20 tablet Referrals: Shane Schneider III, MD [Primary Care Provider] -
[2019-01-24] MEDS: DiphenhydrAMINE 50 MG/ML Syringe 25 MG IV (16:45)
[2019-01-24] MEDS: Metoclopramide 10 MG/2 ML Vial 5 MG IV (16:46)
[2019-01-24 17:50] VITALS: BP 153/89; PULSE 82; RESP 16; O2SAT 94
--- NOTE | 2019-01-24 17:50 | ED.DEP ---
ED Disposition - Plan for ED Patient: Instructions: ED Headache Sinus, ED Cephalgia Unspecified Prescriptions: Amox/Clavulanate Tablet [Augmentin Tablet] 875 mg PO Q12H #20 tablet Referrals: Shane Schneider III, MD [Primary Care Provider] -
[2019-01-24] MEDS: Amox/Clavulanate 875 MG Tablet PO (18:02)
== END 2019-01-24 18:05 | disposition home or self-care (01) ==
PROVIDERS: Emergency Provider Emergency Medicine; Family Provider Family Medicine; PCP Family Medicine
DX: J32.9 Chronic sinusitis, unspecified (principal); R51 Headache; K21.9 Gastro-esophageal reflux disease without esophagitis; E11.9 Type 2 diabetes mellitus without complications; I10 Essential (primary) hypertension; E78.00 Pure hypercholesterolemia, unspecified; F31.9 Bipolar disorder, unspecified; Z85.46 Personal history of malignant neoplasm of prostate; Z79.82 Long term (current) use of aspirin; Z79.84 Long term (current) use of oral hypoglycemic drugs; Z79.899 Other long term (current) drug therapy
CPT/HCPCS: 70450; 96374; 96375; 99284; A4216

== ENCOUNTER 2019-02-18 16:39 | Emergency (ER) | payer MEDICARE, MEDICAID, SELFPAY ==
[2019-02-18 16:40] VITALS: BP 162/82; PULSE 90; RESP 18; TEMP 36.9; O2SAT 94; BMI 36.3
--- NOTE | 2019-02-18 16:58 | ED.DCSUM_ITS ---
History of Present Illness Informant: Patient, [employer] Location: Bilateral Eyes Onset: Today Context: Sudden Onset Timing: Continuous Current Severity: Severe Maximum Severity: Severe Worsened by: nothing Relieved by: nothing Associated Symptoms - Eyes: Burning History of injury: Yes, Chemical exposure Narrative: 68-year-old male presents to the emergency department by squad from detention with bilateral eye pain. Patient was placing sunscreen on his face just prior to arrival and accidentally got some in his eyes. He is having burning pain. Eyes were flushed with water with only moderate relief. He is not having any difficulty with his vision or loss of vision. He does not use visual correction. He has not having any drainage. He has not suffered a traumatic injury. He denies any other review of systems. Prior similar symptoms: No Recent Illness/Hospitalization: No <Damien Flores - Last Filed: 02/18/19 17:06> <Remington Isbell - Last Filed: 02/18/19 22:35> Chief Complaint: Eye Problem Past Medical History Prior records reviewed: Yes Surgical History: herniorrhaphy, - - L foot surgery, prostate surgery for cancer. Lives: - - detention Smoking Status: Never smoker - Family History Maternal Family History: Reports: Dementia Paternal Family History: Reports: Heart Disease - He reported his father from complication of heart surgeries; probably in his 60s. <Damien Flores - Last Filed: 02/18/19 17:06> <Remington Isbell - Last Filed: 02/18/19 22:35> - Allergies and Home Meds Allergies/Adverse Reactions: Allergies ciprofloxacin [From Cipro] Allergy (Verified 01/24/19 16:18) Swelling ciprofloxacin HCl [From Cipro] Allergy (Verified 01/24/19 16:18) Swelling tramadol Allergy (Verified 01/24/19 16:18) Unknown lactose Adverse Reaction (Verified 01/24/19 16:18) Other DIARRHEA peanut Adverse Reaction (Verified 01/24/19 16:18) Nausea terbinafine HCl [From Lamisil] Adverse Reaction (Verified 01/24/19 16:18) Other ABNORMAL LIVER ENZYMES Primary Care Physician: Shane Schneider III, MD [Primary Care Provider] - Review of Systems All systems negative except as indicated Eyes: Reports: - - bilateral eye burning pain <Damien Flores - Last Filed: 02/18/19 17:06> Physical Exam Visual Acuity: Uncorrected Eyelid: Normal inspection Right Conjunctiva/Sclera: Diffuse focal injection Left Conjunctiva/Sclera: Diffuse focal injection Right Cornea: Normal inspection Left Cornea: Normal inspection Extraocular Motion: Normal exam Pupils: Normal accomodation, PERRL Anterior chamber: Normal exam Posterior Segment: Normal fundoscopic exam Vital Signs/Narrative: Vital Signs Temp Pulse Resp BP Pulse Ox 02/18/19 16:40 98.5 F 90 18 162/82 H 94 Inital Vital Signs reviewed: Yes General: Well nourished, Well developed Head: Normocephalic, Atraumatic ENT: Moist mucous membranes Neck: Supple, Nontender Cardiovascular: Regular rate, Regular rhythm Respiratory: No distress, CTA bilaterally, Chest nontender Abdomen: Soft, Nontender, Nondistended, Normal bowel sounds, No masses Back: Nontender Extremities: Nontender, No edema Skin: Normal color, No rash Neurological: Alert, Oriented x3 <Damien Flores - Last Filed: 02/18/19 17:06> Diagnostic/Tx/Re-eval - Medical Decision Making Patient requested we not check visual acuity as he is not able to read secondary to his MRDD. He was able to tell me the objects on my badge of my name tag and see those that I do not feel he has acute visual loss. His symptoms were consistent with a chemical conjunctivitis. Tetracaine was instilled in both eyes with improvement of his symptoms. Again eyes were already flushed out prior to arrival. He was advised to continue to flush his eyes out with water and he will follow-up with ophthalmology but at this time do not feel further work-up indicated in the emergency department for his chemical conjunctivitis. <Damien Flores - Last Filed: 02/18/19 17:06> - Medical Decision Making I independently evaluated this patient with the physician's physician assistant psychiatry. I agree with the history, physical, assessment, and plan. patient was having some eye pain after getting sunscreen in his eyes. He had evidence of chemical conjunctivitis on physical exam. Patient was recommended conservative treatment with eyedrops. <Remington Isbell - Last Filed: 02/18/19 22:35> ED Disposition <Damien Flores - Last Filed: 02/18/19 17:06> <Remington Isbell - Last Filed: 02/18/19 22:35> - Plan for ED Patient: Disposition: Home or Assisted Living Diagnosis: Chemical conjunctivitis of both eyes Instructions: ED Chemical Conjunctivitis Referrals: Shane Schneider III, MD [Primary Care Provider] -
--- NOTE | 2019-02-18 17:04 | ED.RN ---
PER LACIE MURRY VERBAL ORDER TO CANCEL VISUAL ACUITY. . PT WEARS GLASSES ON DAILY BASIS BUT DOES NOT HAVE THEM IN ED.
[2019-02-18] MEDS: Tetracaine 0.5% Ophthalmic Bottle 1 DRP EACH EYE (17:16)
--- NOTE | 2019-02-18 17:23 | ED.RN ---
called [facility] for ride home. will be here in 20 min. diet coke given and pt directed outside- wanted to wait outside.
== END 2019-02-18 17:21 | disposition home or self-care (01) ==
PROVIDERS: Emergency Provider Physician Assistant Medical; Family Provider Family Medicine; PCP Family Medicine
DX: H10.213 Acute toxic conjunctivitis, bilateral (principal); F79 Unspecified intellectual disabilities
CPT/HCPCS: 99284

== ENCOUNTER → 2019-03-20 | Outpatient (CLI) | payer MEDICARE, MEDICAID, SELFPAY ==
[2019-02-18 16:40] VITALS: BMI 36.3
--- NOTE | 2019-03-20 08:23 | RAD_ITS ---
STUDY: AIR-CONTRAST UPPER GI SERIES AND SMALL BOWEL FOLLOW-THROUGH EXAMINATION. REASON FOR EXAM: Male, 69 years old. Right-sided abdominal pain. Loose stools. History of prostate cancer. FLUOROSCOPY TIME (if supplied): (0:54) minutes/seconds. 15 images were obtained. TECHNIQUE: The patient ingested barium. Multiple images of the esophagus, stomach and duodenum were obtained. Following this, a small bowel follow-through examination was performed. COMPARISON: None. FINDINGS: The esophagus is unremarkable. There is no evidence of gastroesophageal reflux. No mass lesion is seen. The stomach and duodenum are unremarkable. No evidence of ulceration. No mass lesion is present. A small bowel follow through examination within obtained. The small bowel transit is normal. The terminal ileum is unremarkable. RAD/Upper GI/w Small Bowel IMPRESSION: Unremarkable air contrast upper GI series and small bowel follow-through examination. Electronically Signed: Sam Ghosh, at 9:53 EDT , Service support ,
== END | disposition home or self-care (01) ==
LOC: RAD 08:14
PROVIDERS: Family Provider Family Medicine; PCP Family Medicine; Referring Provider Nurse Practitioner Adult Health; Visit Provider Nurse Practitioner Adult Health
DX: R13.10 Dysphagia, unspecified (principal)
CPT/HCPCS: 74249

== ENCOUNTER 2019-06-03 09:08 | Emergency (ER) | payer MEDICARE, SELFPAY ==
[2019-06-03 09:09] VITALS: BP 161/89; PULSE 99; RESP 17; TEMP 36.9; O2SAT 94; BMI 36.8
--- NOTE | 2019-06-03 09:26 | CT_ITS ---
STUDY: CT ABDOMEN AND PELVIS WITHOUT CONTRAST REASON FOR EXAM: Male, 69 years old. Right flank pain. Blood in urine. RADIATION DOSAGE (If Supplied By Facility): CTDIvol = ( 16.41 ) mGy, DLP = ( 1190.44 ) mGycm TECHNIQUE: Transaxial images were obtained from the dome of the diaphragm to the symphysis pubis without oral contrast, and without intravenous contrast. Sagittal and coronal images were reconstructed. Individualized dose optimization techniques were used for this CT. COMPARISON: 70 05/25/2015. FINDINGS: The visualized lung bases are unremarkable. The visualized portions of the heart are within normal limits. Moderate amount of asymmetric fatty infiltration of the liver. Normal gallbladder and extrahepatic biliary system. Normal spleen. Normal pancreas. Normal bilateral adrenal glands. Right kidney: 3 mm nonobstructing calculus in the lower pole. 3 tiny 1 mm nonobstructing calculi in the upper pole. No hydronephrosis. Left kidney: 1.7 x 1.2 x 2.4 cm large nonobstructing calculus in the lower pole. 3 tiny nonobstructing 1 to 2 mm calculi in the lower aspect of the middle third of the left kidney. No hydronephrosis. Small hiatal hernia. Normal small intestine. 2 diverticula in the sigmoid colon without diverticulitis. The appendix is visualized and appears normal. Normal abdominal aorta. Normal inferior vena cava. Normal retroperitoneum. Normal urinary bladder. Penile prosthesis implant. Small right inguinal hernia containing only adipose tissue. Degenerative disc space height narrowing with degenerative vacuum phenomena and from L2-L3 down to L5-S1 disc space levels. CT/Abdomen/Pelvis without Cont IMPRESSION: 1. 1.7 x 1.2 x 2.4 cm large nonobstructing calculus in the left lower renal pole and 3 tiny nonobstructing calculi in the lower aspect of the middle third of the left kidney. 2. 3 mm nonobstructing calculus in the right lower renal pole and 3 tiny 1-2 mm nonobstructing calculi in the upper pole. 3. 2 diverticula in the sigmoid colon without diverticulitis. 4. Small hiatal hernia. 5. Moderate asymmetric hepatic steatosis, predominantly in the right hepatic lobe. 6. Degenerative disc space height narrowing with degenerative vacuum phenomenon from L2-L3 down to L5-S1 disc space levels. 7. Small right inguinal hernia containing only adipose tissue. 8. No significant interval changes when compared to 03/13/2015. Electronically Signed: Jamie Bentley MD at 11:46 EDT , Service support ,
[2019-06-03] MEDS: 0.9% Normal Saline 1,000 ML 999 ML IV (09:50)
[2019-06-03 10:03] LABS: Absolute Neutrophil Count 3.5 X10^3/uL (2.0-7.7); Basophil# 0.02 X10^3/uL; Basophil% 0.3 % (0-1); Eosinophil# 0.21 X10^3/uL; Eosinophils% 3.1 % (0-5); Lymphocyte % 36.8 % (19-41); Mean Corp Hgb Conc 32.6 g/dL (32-36); Mean Corpuscular Hgb 28.6 pg (27.0-32.0); Mean Corpuscular Volume 87.8 fL (80-94); Mean Platelet Vol. 9.5 fl (6.2-12.0); Monocyte% 8.8 % (0-10); NRBC Flagged by Analyzer 0 % (0-5); Neutrophil # 3.45 X10^3/uL (2.7-7.7); Neutrophil % 50.9 % (47-70); Platelet Count 227 K/mm3 (150-450); RBC Distribution Width CV 12.1 % (11.6-14.6); RBC Distribution Width SD 38.7 fl (35.1-43.9); Red Blood Count 5.24 M/mm3 (4.6-6.2); White Blood Count 6.8 K/mm3 (4.4-11.0)
[2019-06-03 10:13] LABS: Bacteria 0 SEEN /hpf (None Seen); Mucous, Urine 0 SEEN /hpf (<or=2+); Squamous Epithelial Cells - UA 0 SEEN /hpf (0-5)
[2019-06-03 10:14] LABS: Anion Gap 8 (5-15); BUN 17 mg/dL (7-18); BUN/Creat Ratio 18.2 RATIO (10-20); Calcium,Total 9.8 mg/dL (8.5-10.1); Chloride 103 mmol/L (98-107); Creatinine, Serum 0.93 mg/dL (0.70-1.30); EST Glomerular Filtration Rate 86 mL/min (>60); Est Glom Filt Rate - Afr Amer 104 mL/min (>60); Estimated Creatinine Clearance 69.55 ml/min; Glucose 125 mg/dL (74-106); Sodium Level 139 mmol/L (136-145)
[2019-06-03 10:18] LABS: Color, Urine Red (Yellow); Glucose, Dipstick Normal (Normal); Ketone-Dipstick 5 mg/dl (Negative); Leukocyte Esterase-Dipstick 500 /ul (Negative); Nitrite-Dipstick Positive (Negative); Occult Blood-Urine 250 /ul (Negative); Protein-Dipstick 30 mg/dl (Negative); Specific Gravity, Urine 1.015 (1.002-1.030); Urine Bilirubin Dipstick Negative (Negative); Urine Clarity Cloudy (Clear); Urine Urobilinogen Normal (Normal)
--- NOTE | 2019-06-03 10:25 | ED.DCSUM_ITS ---
- ER Visit Summary Date of Service: 06/03/19 Chief Complaint: Hematuria History of Present Illness: The patient is a 69 M who presents the emergency department with blood in his urine. Patient states that for weeks he has had a pain in his right flank which she attributed to kidney stones as he has had them several times before. Pain has been increased over the past several days and he notes that it is been more in the lower side of his abdomen. He notes today's passing blood clots and states that the pain is gone. He denies any fever. He has had a prostatectomy due to prostate cancer. Physical Examination: Afebrile vital signs are stable Gen: Well-nourished well-developed Head: Normocephalic atraumatic Eyes: Perrl EOMI ENT: TMs clear no rhinorrhea moist mucous membranes Neck: Supple no lymphadenopathy no JVD nontender CVS: Regular rate rhythm no murmurs normal S1-S2 Respiratory: No distress clear to auscultation bilaterally chest nontender Abdomen: Soft nontender nondistended normal bowel sounds no masses Back: Nontender Extremity: Nontender no edema Skin: Normal color no rash Neuro: alert orientated ?3 CN II-XII intact normal strength sensation Psych: Normal affect normal mood Test Results: CBC and BMP were normal. Urinalysis demonstrated 50-100 white blood cells. 100 red blood cells positive nitrates positive leukocyte esterase. CT the abdomen pelvis did not demonstrate any pathology to explain his pain. Please see radiologist details Emergency Department Course and Treatment: Patient's urine is not bloody when I reinterviewed him. He does not have any difficulty emptying the bladder. Patient will have a urine culture performed I will place him on Keflex. He is to follow-up with his doctors if not improving he is to hydrate Impression: 1. Acute cystitis This note was generated with [employer] dictation software. It may contain incorrect words, spelling, and punctuation that were not noted in review of the chart prior to signing ED Disposition - Plan for ED Patient: Disposition: Home or Assisted Living Instructions: Bladder Infection, Male (Adult) Prescriptions: Cephalexin [Keflex] 500 mg PO Q12 #14 cap Prescription Printed Referrals: Shane Schneider III, MD [Primary Care Provider] - 3-5 Days if not improving
[2019-06-03 10:28] LABS: Red Blood Cells-Urine > 100 SEEN /hpf (0-5); White Blood Cells 50-100 SEEN /hpf (0-5)
[2019-06-03 11:09] VITALS: RESP 14
[2019-06-03 12:12] VITALS: BP 157/83; PULSE 81; RESP 14; O2SAT 97
== END 2019-06-03 12:13 | disposition home or self-care (01) ==
PROVIDERS: Emergency Provider Emergency Medicine; Family Provider Family Medicine; PCP Family Medicine
DX: N30.01 Acute cystitis with hematuria (principal); Z87.442 Personal history of urinary calculi; Z85.46 Personal history of malignant neoplasm of prostate; Z90.79 Acquired absence of other genital organ(s)
CPT/HCPCS: 74176; 80048; 81001; 85025; 87077; 87086; 87088; 87186; 96360; 96361; 99284; J7030

== ENCOUNTER 2019-09-26 02:56 | Emergency (ER) | payer MEDICARE, SELFPAY ==
[2019-09-26 02:59] VITALS: BP 150/83; PULSE 77; RESP 18; TEMP 36.7; O2SAT 94; BMI 36.8
--- NOTE | 2019-09-26 03:16 | CT_ITS ---
STUDY: CT BRAIN WITHOUT CONTRAST REASON FOR EXAM: Male, 69 years old. Pain after falling. TECHNIQUE: Transaxial CT imaging of the brain was performed without administration of intravenous contrast material. Individualized dose optimization techniques were used for this CT. COMPARISON: 01/24/2019 CT brain. FINDINGS: No evidence of intracranial hemorrhage, mass, acute infarct, or hydrocephalus. Chronic microangiopathic changes in the white matter. Atherosclerosis of the intracranial arteries. No skull fracture or acute osseous abnormality. Visualized paranasal sinuses and mastoid air cells without air-fluid levels. Small polyps in the right frontal sinus and right maxillary sinus. Visualized extracranial soft tissues unremarkable. CT/Brain/Head without Contrast IMPRESSION: No evidence of intracranial injury or skull fracture. Electronically Signed: Phoenix Mccord, at 4:06 EST Tel , Service support ,
--- NOTE | 2019-09-26 03:16 | CT_ITS ---
STUDY: CT CERVICAL SPINE WITHOUT CONTRAST REASON FOR EXAM: Male, 69 years old. Pain after falling. TECHNIQUE: High resolution transaxial imaging was performed without contrast material. Sagittal and coronal images were reconstructed. Individualized dose optimization techniques were used for this CT. COMPARISON: None FINDINGS: No fracture or dislocation of the cervical spine. Alignment anatomic. Prominent disc degeneration and at C5-6, C6-7 and C7-T1. Disc osteophyte complex causes moderate spinal canal and high-grade bilateral foraminal narrowing at these levels. No acute findings in the paraspinal soft tissues. No prevertebral hematoma.[] CT/Spine Cervical without Contras IMPRESSION: No fracture or dislocation of the cervical spine. Electronically Signed: Phoenix Mccord, at 4:09 EST Tel , Service support ,
--- NOTE | 2019-09-26 03:31 | ED.DCSUM_ITS ---
History of Present Illness Chief Complaint: Fall Informant: Patient Occurred: Today Narrative: Patient is a 69-year-old male presenting from care home after fall out of bed. Patient states he was sleeping when he was mostly out of bed and then his body weight pulled the rest way to the bed. He states he fell heavily onto the ground and hit the back of his head and his back onto the ground. He states he woke up while he was falling. Denies any loss of consciousness. He was able to get himself back up. He was brought to the emergency room for further evaluation. Patient is complained of headache as well as neck in mid back pain. He denies taking any more pain prior to arrival. He denies any other complaints at this time. Tetanus Immunization: 5-10 years Past Medical History - Allergies and Home Meds Allergies/Adverse Reactions: Allergies ciprofloxacin [From Cipro] Allergy (Verified 09/26/19 03:02) Swelling ciprofloxacin HCl [From Cipro] Allergy (Verified 09/26/19 03:02) Swelling tramadol Allergy (Verified 09/26/19 03:02) Unknown lactose Adverse Reaction (Verified 09/26/19 03:02) Other DIARRHEA peanut Adverse Reaction (Verified 09/26/19 03:02) Nausea terbinafine HCl [From Lamisil] Adverse Reaction (Verified 09/26/19 03:02) Other ABNORMAL LIVER ENZYMES Primary Care Physician: Shane Schneider III, MD [Primary Care Provider] - Past Medical History: - - Hypertension, diabetes mellitus, history of prostate cancer, hyperlipidemia, GERD, bipolar disorder Surgical History: noncontributory, herniorrhaphy, - - L foot surgery, prostate surgery for cancer. Smoking Status: Never smoker - Family History Maternal Family History: Reports: Dementia Paternal Family History: Reports: Heart Disease - He reported his father from complication of heart surgeries; probably in his 60s. Review of Systems General: Denies: Chills, Fever, Sweats Eyes: Denies: Visual changes - bilaterally, Diplopia ENT: Denies: Rhinorrhea, Sore throat Cardiovascular: Denies: Chest pain, Palpitations Respiratory: Denies: Dyspnea, Cough, Dyspnea on exertion Gastrointestinal: Denies: Abdominal pain, Nausea, Vomiting, Diarrhea, Melena, Hematochezia Genitourinary: Denies: Dysuria, Hematuria, Frequency Musculoskeletal: Reports: Neck pain, Back pain - Thoracic. Denies: Extremity Pain Skin: Denies: Rash, Wounds Neurological: Reports: Headache. Denies: Weakness, Numbness Physical Exam Vital Signs/Narrative: Vital Signs Temp Pulse Resp BP Pulse Ox 09/26/19 02:59 98.1 F 77 18 150/83 H 94 Inital Vital Signs reviewed: Yes General: Well nourished, Well developed Head: Normocephalic, Atraumatic Eyes: Perrl, EOMI, - - No nystagmus ENT: TM's clear, No hemotympanum or drainage, No trauma. Negative for: Nasal septal hematoma Neck: Nontender, Full ROM Cardiovascular: Regular rate, Regular rhythm, No murmurs Respiratory: No distress, CTA bilaterally, Chest nontender Abdomen: Soft, Nontender, Nondistended, Normal bowel sounds Back: Paraspinal Tenderness - Diffusely in the thoracic region approximately T3- T7, no step-off sign. Negative for: Spinal Tenderness Extremeties: No deformity, full range of motion of upper and lower extremities. Patient ambulates easily moves arms easily. No shoulder tenderness to palpation. Skin: Normal color, No rash, - - Superficial abrasion, 1 cm in diameter to the vertex of the scalp, no active bleeding Neurological: Alert, Oriented x3, Cranial nerves II-XII grossly intact, Normal Strength, Normal Sensation Psychological: Normal affect Diagnostic/Tx/Re-eval Clinical Impression(s) from Imaging Studies Brain CT 09/26/19 03:16 IMPRESSION: No evidence of intracranial injury or skull fracture. Electronically Signed: Phoenix Mccord, at 4:06 EST Tel , Service support , Cervical Spine CT 09/26/19 03:16 IMPRESSION: No fracture or dislocation of the cervical spine. Electronically Signed: Phoenix Mccord, at 4:09 EST Tel , Service support , - Medical Decision Making Patient is evaluated after a fall out of bed. He appears nontoxic and in no acute distress. His normal neurologic exam. He does have a small superficial abrasion to his scalp. His tetanus is up-to-date. CT of the brain and C-spine are obtained to rule out an acute fracture or intracranial bleed. Patient be discharged back home pending negative reads. He is agreeable with this plan. He is amatory in the emergency room. While he does have some thoracic tenderness he is not have any midline pain I do not think an x-ray of the thoracic spine is indicated at this time. Patient is given ice for pain control. Patient is counseled on signs and symptoms requiring return to the emergency room. Patient verbalizes agreement and understand this plan. Patient discharged home in stable and improved condition. ED Disposition - Plan for ED Patient: Disposition: Home or Assisted Living Diagnosis: Fall, Closed head injury, Scalp abrasion, Acute thoracic back pain Instructions: FALL, Mechanical Referrals: Shane Schneider III, MD [Primary Care Provider] - Additional Instructions: You may take either Tylenol or ibuprofen as needed for pain. You may also apply ice to the area of pain. Follow-up with your primary care doctor. This time not have any obvious broken bones or significant head injury.
[2019-09-26 04:29] VITALS: BP 147/84; PULSE 71; TEMP -5.5; TEMP 22; O2SAT 97
--- NOTE | 2019-09-26 04:29 | ED.RN ---
THIS NURSE REVIEWED D/C INSTRUCTIONS WITH PT. PT VERBALIZED UNDERSTANDING OF INSTRUCTIONS. PT DENIES FURTHER NEEDS OR QUESTIONS AT THIS TIME. PT AMBULATES FROM ROOM ON OWN WITHOUT ASSISTANCE FROM STAFF
== END 2019-09-26 04:30 | disposition home or self-care (01) ==
PROVIDERS: Emergency Provider Emergency Medicine; PCP Family Medicine
DX: S00.01XA Abrasion of scalp, initial encounter (principal); M54.6 Pain in thoracic spine; W06.XXXA Fall from bed, initial encounter; Y93.9 Activity, unspecified; Y92.9 Unspecified place or not applicable; I10 Essential (primary) hypertension; E11.9 Type 2 diabetes mellitus without complications; E78.5 Hyperlipidemia, unspecified; K21.9 Gastro-esophageal reflux disease without esophagitis; F31.9 Bipolar disorder, unspecified; Z85.46 Personal history of malignant neoplasm of prostate; Z79.82 Long term (current) use of aspirin; Z79.84 Long term (current) use of oral hypoglycemic drugs; Z79.899 Other long term (current) drug therapy
CPT/HCPCS: 70450; 72125; 99284

== ENCOUNTER 2020-06-25 16:21 | Emergency (ER) | payer MEDICARE, SELFPAY ==
[2020-06-25 16:22] VITALS: BP 118/54; PULSE 103; RESP 16; TEMP 36.1; O2SAT 95; BMI 38.7
--- NOTE | 2020-06-25 17:50 | CT_ITS ---
STUDY: CT ABDOMEN AND PELVIS WITHOUT CONTRAST REASON FOR EXAM: Male, 70 years old. Scrotal edema for unknown amount of time, elevated creatinine. Hx prostate cancer, diabetes, hypertension, bipolar. RADIATION DOSAGE (If Supplied By Facility): CTDIvol = ( 15.06 ) mGy, DLP = ( 1057.65 ) mGycm TECHNIQUE: Transaxial images were obtained from the dome of the diaphragm to the symphysis pubis without oral contrast, and without intravenous contrast. Sagittal and coronal images were reconstructed. Individualized dose optimization techniques were used for this CT. COMPARISON: None. FINDINGS: The visualized lung bases are unremarkable. The visualized portions of the heart are within normal limits. Normal liver. Normal gallbladder and extrahepatic biliary system. Normal spleen. Normal pancreas. Normal bilateral adrenal glands. 2 nonobstructing calculi within both kidneys. No evidence for hydronephrosis or ureteral calculus. No renal mass given limited unenhanced nature of the study. Normal visualized stomach. Normal small intestine. Mild nonspecific ileus with diffuse fecal retention in the colon.. Minor diverticular changes of the colon without evidence for acute diverticulitis The appendix is visualized and appears normal. Mild atherosclerotic changes of the aorta without evidence for aneurysm. Normal inferior vena cava. Normal retroperitoneum. Incompletely distended thick-walled bladder containing air possibly due to prior catheterization or inflammatory changes. There is a rounded radiopaque device within the right lower pelvis with linear extension into the right inguinal canal to the level of the scrotum consistent with known artificial bladder sphincter.. There is associated air noted within the right inguinal canal. There is extensive tissue swelling of the scrotum with bilateral hydroceles. However, there is also diffuse soft tissue swelling of the perineum with scattered gas consistent with NITESH gangrene. Lumbar spine demonstrates moderate spondylosis.. CT/Abdomen/Pelvis without Cont IMPRESSION: Postop change status post placement of artificial bladder sphincter. 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 Bilateral nephrolithiasis without evidence for hydronephrosis or ureteral calculus. Other findings as above N.B. : The above information has been verbally conveyed by Modesto Hills MD to Les Boyd MD, on 06/25/2020 19:24:48 (ET). Electronically Signed: Modesto Hills MD at 19:25 EDT , Service support ,
--- NOTE | 2020-06-25 17:54 | ED.DCSUM_ITS ---
History of Present Illness Chief Complaint: Male Pain/Injury Narrative: Patient presents from a half-way. He has a history of bipolar disorder. He also has a history of hypertension and diabetes he has a history of prostate cancer with an artificial bladder sphincter, he was noted to have scrotal swelling and possible urinary retention however this is been for 2 to 3 days. No reported fever or chills there is significant scrotal swelling. No shortness of breath no lower extremity edema. Patient has been more confused over the past few days. When I talked to him he tells me his name he does not know what year it is, he does not know where he is but he thinks he is somewhere in [place]. Past Medical History - Allergies and Home Meds Allergies/Adverse Reactions: Allergies ciprofloxacin [From Cipro] Allergy (Verified 09/26/19 03:02) Swelling ciprofloxacin HCl [From Cipro] Allergy (Verified 09/26/19 03:02) Swelling tramadol Allergy (Verified 09/26/19 03:02) Unknown lactose Adverse Reaction (Verified 09/26/19 03:02) Other DIARRHEA peanut Adverse Reaction (Verified 09/26/19 03:02) Nausea terbinafine HCl [From Lamisil] Adverse Reaction (Verified 09/26/19 03:02) Other ABNORMAL LIVER ENZYMES Primary Care Physician: Shane Schneider III, MD [Primary Care Provider] - Past Medical History: - - Hypertension, diabetes, prostate cancer, artificial bladder sphincter, GERD, bipolar Surgical History: noncontributory, herniorrhaphy, - - L foot surgery, prostate surgery for cancer. Smoking Status: Never smoker - Family History Maternal Family History: Reports: Dementia Paternal Family History: Reports: Heart Disease - He reported his father from complication of heart surgeries; probably in his 60s. Review of Systems ROS: Unable to Obtain - Secondary to his confusion and mental status changes Physical Exam Vital Signs/Narrative: Vital Signs Temp Pulse Resp BP Pulse Ox 06/25/20 16:22 97 F L 103 H 16 118/54 L 95 General: - - Patient appears chronically ill however he does not appear toxic he does not appear in significant distress she is relatively comfortable laying on the bed. Head: Normocephalic Eyes: Perrl. Negative for: Pale conjunctiva ENT: Moist mucous membranes Neck: Supple Cardiovascular: Regular rate, Regular rhythm Respiratory: No distress, CTA bilaterally Abdomen: Soft, - - Some suprapubic pain : - - There is significant scrotal edema. There is very slight erythema but no calor no signs of cellulitis. No obvious signs of fornierer's Back: Negative for: CVA tenderness Extremities: Nontender Skin: Normal color Neurological: Normal Strength, Normal Sensation Diagnostic/Tx/Re-eval - Medical Decision Making He has leukocytosis. He has acute kidney failure. We did make an attempt to place a Nielsen catheter but were not successful, I did not want to be too diligent or tried to hard since he has an artificial bladder sphincter. I send him for CT and there is quite a bit of inflammation and air. I am worried about Janice's more so than I was initially. He has leukocytosis. I started clindamycin, vancomycin, Zosyn. I discussed with our urologist, Dr. Mendez who told me to transfer since the patient has an artificial bladder sphincter. At this time he is hemodynamically stable. - Critical Care Time Critical care time (excluding procedures): 30-74 minutes ED Disposition - Plan for ED Patient: Disposition: Acute Care Hospital - Other Diagnosis: Janice's gangrene of penis Referrals: Shane Schneider III, MD [Primary Care Provider] -
[2020-06-25 18:25] LABS: Bacteria 0 SEEN /hpf (None Seen); Mucous, Urine 0 SEEN /hpf (<or=2+); Red Blood Cells-Urine 0 SEEN /hpf (0-5); Squamous Epithelial Cells - UA 0 SEEN /hpf (0-5); White Blood Cells 0 SEEN /hpf (0-5)
[2020-06-25 18:29] LABS: Absolute Lymphocyte Count 0.99 X10^3/uL (0.83-4.51); Absolute Neutrophil Count 17.7 X10^3/uL (2.0-7.7); Basophil# 0.08 X10^3/uL; Basophil% 0.4 % (0-1); Eosinophil# 0.01 X10^3/uL; Eosinophils% 0.1 % (0-5); Hematocrit 39.8 % (40-54); Hemoglobin 12.9 g/dL (13.0-16.5); Lymphocyte # 0.99 X10^3/ul (4.0); Mean Corp Hgb Conc 32.4 g/dL (32-36); Mean Corpuscular Hgb 28.9 pg (27.0-32.0); Mean Corpuscular Volume 89.2 fL (80-94); Mean Platelet Vol. 9.5 fl (6.2-12.0); Monocyte# 0.78 X10^3/uL; NRBC Flagged by Analyzer 0 % (0-5); Neutrophil # 17.72 X10^3/uL (2.7-7.7); POSITIVE MORPHOLOGY YES; Platelet Count 386 K/mm3 (150-450); RBC Distribution Width CV 12.5 % (11.6-14.6); RBC Distribution Width SD 41.1 fl (35.1-43.9); Red Blood Count 4.46 M/mm3 (4.6-6.2); White Blood Count 19.7 K/mm3 (4.4-11.0)
[2020-06-25 18:40] LABS: Differential Indicated SCAN CRITERIA MET
[2020-06-25 18:42] LABS: Color, Urine Straw (Yellow); Glucose, Dipstick Normal (Normal); Ketone-Dipstick Negative (Negative); Leukocyte Esterase-Dipstick Negative /ul (Negative); Nitrite-Dipstick Negative (Negative); Occult Blood-Urine Negative /ul (Negative); Protein-Dipstick Negative (Negative); Specific Gravity, Urine 1.005 (1.002-1.030); Urine Bilirubin Dipstick Negative (Negative); Urine Clarity Clear (Clear); Urine Urobilinogen Normal (Normal)
[2020-06-25 18:48] LABS: ALB/GLOB Ratio 0.6 RATIO (0.9-2.4); AST(SGOT) 21 U/L (15-37); Alanine Aminotransfer ALT/SGPT 34 U/L (16-61); Albumin, Serum 2.9 g/dL (3.2-5.0); Alkaline Phosphatase 92 U/L (45-117); Anion Gap 9 (5-15); BUN 47 mg/dL (7-18); BUN/Creat Ratio 9.6 RATIO (10-20); Calcium,Total 9.6 mg/dL (8.5-10.1); Chloride 100 mmol/L (98-107); Creatinine, Serum 4.91 mg/dL (0.70-1.30); EST Glomerular Filtration Rate 13 mL/min (>60); Est Glom Filt Rate - Afr Amer 15 mL/min (>60); Estimated Creatinine Clearance 12.99 ml/min; Globulin 5.1 g/dL (2.2-4.2); Glucose 186 mg/dL (74-106); Potassium 4.4 mmol/L (3.5-5.1); Sodium Level 132 mmol/L (136-145)
[2020-06-25 18:54] LABS: Lactic Acid 2.4 mmol/L (0.4-1.9)
--- NOTE | 2020-06-25 18:55 | RAD_ITS ---
STUDY: X-RAY CHEST REASON FOR EXAM: Male, 70 years old. WEAKNESS TECHNIQUE: AP portable COMPARISON: 10/10/2018 FINDINGS: Nonspecific elevation of right hemidiaphragm. Lungs are clear of acute infiltration.. There is no demonstrated pleural abnormality. Normal size heart. Normal mediastinum and jatin. Normal visualized pulmonary arteries. Normal visualized aortic arch and descending thoracic aorta. Dorsal spine demonstrates mild degenerative change. Normal visualized ribs, clavicles, and shoulders. There is no demonstrated abnormality of the visualized soft tissue structures of the upper abdomen. No significant change since prior exam RAD/Chest 1 View (Portable) IMPRESSION: No acute cardiopulmonary pathology. Electronically Signed: Modesto Hills MD at 19:26 EDT , Service support ,
[2020-06-25 19:49] VITALS: BP 108/57; PULSE 94; RESP 16; O2SAT 93
--- NOTE | 2020-06-25 20:09 | ED.RN ---
UPDATED [facility] PT'S [facility] WORKER ON PLAN TO TRANSFER PT TO ANOTHER FACILITY. HIS CALLBACK NUMBER IS [phone]
[2020-06-25 21:00] VITALS: BP 102/71; PULSE 71; RESP 16; O2SAT 95
[2020-06-25 21:25] VITALS: BP 109/69; PULSE 73; RESP 16; TEMP 36.7; O2SAT 95
--- NOTE | 2020-06-25 21:26 | ED.RN ---
[facility] UPDATED ON PT'S TRANSFER TO , PHONE NUMBER GIVEN TO FACILITY.
--- NOTE | 2020-06-25 21:37 | ED.RN ---
[facility] UPDATED ON CHANGE OF TRANSFER TO [place].
[2020-06-25 22:21] LABS: Reflex Lactate? Y
== END 2020-06-25 21:57 | disposition short-term general hospital (02) ==
PROVIDERS: Emergency Provider Emergency Medicine; PCP Family Medicine
DX: N49.3 Fournier gangrene (principal); Z96.89 Presence of other specified functional implants; I10 Essential (primary) hypertension; E11.9 Type 2 diabetes mellitus without complications; K21.9 Gastro-esophageal reflux disease without esophagitis; F31.9 Bipolar disorder, unspecified; Z85.46 Personal history of malignant neoplasm of prostate; Z79.82 Long term (current) use of aspirin; Z79.84 Long term (current) use of oral hypoglycemic drugs; Z79.899 Other long term (current) drug therapy
CPT/HCPCS: 71045; 74176; 80053; 81001; 83605; 85025; 87086; 87635; 96365; 96366; 96368; 99285; J7030; J7040; A4216; U0002